=== PATIENT | female | born 1990 | race Caucasian/White ===

== ENCOUNTER 2017-06-04 07:00 | Inpatient (IN) | payer OTHER, SELFPAY ==
[2017-06-04] MEDS: Lactated Ringers 1,000 ML 50 ML IV ×3 (08:05→17:51)
[2017-06-04 08:24] LABS: Hematocrit 36.9 % (37-47); Hemoglobin 12.6 g/dl (12.0-15.0); Mean Corp Hgb Conc 34.1 g/gl (32-36); Mean Corpuscular Hgb 30.3 pg (27.0-32.0); Mean Corpuscular Volume 88.7 fL (81-99); Mean Platelet Vol. 10.9 fl (6.2-12.0); Platelet Count 215 K/mm3 (150-450); RBC Distribution Width CV 14.3 % (11.6-14.6); RBC Distribution Width SD 45.9 fl (35.1-43.9); Red Blood Count 4.16 M/mm3 (4.2-5.4); White Blood Count 10.9 K/mm3 (4.4-11.0)
[2017-06-04 08:26] LABS: Scan Indicated on CBC? Y/N NO
[2017-06-04 08:36] VITALS: BMI 39.2
[2017-06-04] MEDS: Clindamycin 900 MG/50 ML BAG 75 MG IV ×2 (08:57→16:05)
[2017-06-04] MEDS: Oxytocin 30 units/NS 500 ml 30 UNITS/500 ML IV.SOLN IV (08:58)
--- NOTE | 2017-06-04 08:59 | PCM.HP.OB ---
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 Allergies amoxicillin Allergy (Verified 06/04/17 07:29) Hives Penicillins Allergy (Verified 06/04/17 07:29) Hives Current Medications Acetaminophen (Tylenol) 325 - 650 mg PO Q4H PRN PRN PRN Reason: PAIN OR FEVER >100.4F Al Hydroxide/Mg Hydroxide (Mylanta Ii) 15 - 30 ml PO Q4H PRN PRN PRN Reason: INDIGESTION Citric Acid/Sodium Citrate (Bicitra) 30 ml PO UD PRN Lactated Ringer's () 1,000 mls @ 50 mls/hr IV .Q20H KARI Oxytocin/Sodium Chloride () 30 units in 500 mls @ 1 mls/hr IV .Q500H [facility] Last Admin: 06/04/17 08:58 Dose: 1 mls/hr Clindamycin Phosphate (Cleocin) 900 mg in 50 mls @ 75 mls/hr IV Q8H [facility] Last Admin: 06/04/17 08:57 Dose: 75 mls/hr Nalbuphine HCl (Nubain) 5 - 10 mg IV Q3H PRN PRN PRN Reason: PAIN (4-10/10) Ondansetron HCl (Zofran) 4 mg IV Q8H PRN PRN PRN Reason: NAUSEA Promethazine HCl (Phenergan) 6.25 - 12.5 mg IV Q4H PRN PRN; Protocol PRN Reason: IF NAUSEA PERSISTS Sodium Chloride () 5 - 15 ml IV UD [facility] Smoking Status: Never smoker Alcohol: None Drug Use: none Number of Fetus(es): 1 Physical Exam General: Alert, Oriented x3 Abdomen: Soft, Non Tender, Non-Distended, Gravid Presentation: Cephalic Cervix Dilation (cm): 2 Station: -3 Effacement (%): 60 - AROM clear fluid Assessment/Plan 27yo female for postdates induction Admit to L&D Pain - epidural when desired GBS positive EFW less than 4500g, adequate pelvis Routine care FWB - fhts 150 with mod variability, accels, mild variables; reassuring
--- NOTE | 2017-06-04 09:03 | HP.PCM_ITS ---
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 Allergies amoxicillin Allergy (Verified 06/04/17 07:29) Hives Penicillins Allergy (Verified 06/04/17 07:29) Hives Current Medications Acetaminophen (Tylenol) 325 - 650 mg PO Q4H PRN PRN PRN Reason: PAIN OR FEVER >100.4F Al Hydroxide/Mg Hydroxide (Mylanta Ii) 15 - 30 ml PO Q4H PRN PRN PRN Reason: INDIGESTION Citric Acid/Sodium Citrate (Bicitra) 30 ml PO UD PRN Lactated Ringer's () 1,000 mls @ 50 mls/hr IV .Q20H [facility] Oxytocin/Sodium Chloride () 30 units in 500 mls @ 1 mls/hr IV .Q500H [facility] Last Admin: 06/04/17 08:58 Dose: 1 mls/hr Clindamycin Phosphate (Cleocin) 900 mg in 50 mls @ 75 mls/hr IV Q8H [facility] Last Admin: 06/04/17 08:57 Dose: 75 mls/hr Nalbuphine HCl (Nubain) 5 - 10 mg IV Q3H PRN PRN PRN Reason: PAIN (4-10/10) Ondansetron HCl (Zofran) 4 mg IV Q8H PRN PRN PRN Reason: NAUSEA Promethazine HCl (Phenergan) 6.25 - 12.5 mg IV Q4H PRN PRN; Protocol PRN Reason: IF NAUSEA PERSISTS Sodium Chloride () 5 - 15 ml IV UD [facility] Smoking Status: Never smoker Alcohol: None Drug Use: none Number of Fetus(es): 1 Physical Exam General: Alert, Oriented x3 Abdomen: Soft, Non Tender, Non-Distended, Gravid Presentation: Cephalic Cervix Dilation (cm): 2 Station: -3 Effacement (%): 60 - AROM clear fluid Assessment/Plan 27yo female for postdates induction Admit to L&D Pain - epidural when desired GBS positive EFW less than 4500g, adequate pelvis Routine care FWB - fhts 150 with mod variability, accels, mild variables; reassuring
[2017-06-04] MEDS: fentaNYL-bupivacaine (epidural) 100 ML BAG EPIDURAL (15:58)
[2017-06-04] MEDS: Oxytocin 30 units/NS 500 ml 30 UNITS/500 ML IV.SOLN 334 UNITS IV (20:50)
--- NOTE | 2017-06-04 21:07 | PCM.OB.VAG ---
Vaginal Delivery Maternal Presentation: Medically Indicated Induction Method of Induction: Pitocin, Amniotomy Amniotic Membrane Rupture Type: Artificial Amniotic Fluid Description: Clear Final PATTI: 05/28/17 Gestational age: 41 Weeks and 0 Days Date of Procedure: 06/04/17 Pre-Operative Diagnosis: Post-dates Post-Operative Diagnosis: Same Surgery/ Procedure Performed: Spontaneous Vaginal Delivery Type of Anesthesia: Epidural Description of Procedure: Called to room when patient c/c/+2. Patient was prepped & draped. She pushed well but fhts were noted to intermittently be in the 50-70's. Thus decision made to use the vacuum. position confirmed and vacuum placed. Vacuum position confirmed on head. With the next ctx and 1 pull the head crowned. Vacuum released as head delivered. Tight nuchal cord noted and was clamped & cut. With maternal push the shoulders & body easily delivered. Infant placed on maternal abdomen. Placenta delivered with gentle traction. Good uterine tone obtained. Presentation: LUIS Placental Delivery Description: Expressed Placenta Disposition: [facility] Cord Vessel Description: 3 Vessels Cord Entanglement: Around neck x 1, tight Estimated Blood Loss: 350ml Infant A gender: Female (1 minute): 9 (5 minute): 9 Episiotomy Description: None Laceration: 1st degree - vaginal - repaired with 3-0 vicryl Medications given after delivery: IV Pitocin Complications: None
[2017-06-04] MEDS: Oxytocin 30 units/NS 500 ml 30 UNITS/500 ML IV.SOLN 167 UNITS IV (21:30)
[2017-06-04 22:57] VITALS: BP 151/71; PULSE 86; RESP 17; TEMP 37.3
[2017-06-05 02:00] VITALS: PULSE 97; RESP 18; TEMP 37.2
[2017-06-05 07:49] VITALS: BP 134/68; PULSE 85; RESP 18; TEMP 36.4; O2SAT 96
[2017-06-05] MEDS: Ibuprofen 600 MG Tablet PO ×2 (07:52→15:52)
--- NOTE | 2017-06-05 08:49 | PCM.PN.OB ---
Subjective: pain mild, average lochia - Physical Exam General: Alert, Cooperative, No apparent distress Vital Signs Temp Pulse Resp BP Pulse Ox 97.5 F L 85 18 134/68 H 96 06/05/17 07:49 06/05/17 07:49 06/05/17 07:49 06/05/17 07:49 06/05/17 07:49 Oxygen Delivery Method Room Air Weight: 117.208 kg Body Mass Index (BMI) 39.2 Intake and Output for Last 24 Hours 06/03/17 06/04/17 06/05/17 23:59 23:59 23:59 Intake Total 3043 / 3043 Output Total 2400 / 2400 450 / 450 Balance 643 / 643 -450 / -450 Laboratory Tests Past 24 Hrs 06/04/17 08:05 Blood Type O NEGATIVE Antibody Screen NEGATIVE Medical Necessity - Tobacco Use Smoking Status: Never smoker Assessment/Plan PPD#1 makenna [place] work on [employer] likely home tomorrow
--- NOTE | 2017-06-05 08:52 | DCINST_ITS ---
Discharge Diet: No Restrictions Discharge Activity: Return to Normal Activity, May not drive while taking narcotic pain medications., May Shower May resume sexual activity in: 4-6 weeks Additional Activity Instructions:: Nothing in the vagina for 4-6 weeks. You may return to work/school in 6 weeks. Call your doctor if your incision/area has: Continuous Slow Oozing, Sudden Increased Bleeding, Increased Pain/ Swelling, Increased Redness, Foul Smelling Discharge Additional Instructions: If you experience any of the following, contact your healthcare provider. * Bleeding that soaks a pad every hour for 2 hours * Fever 100.4 or higher * Unrelieved incision or abdominal pain * Swelling, redness, discharge or bleeding from your incision or episiotomy site * Your incision begins to separate * Problems urinating (including inability to urinate or burning while urinating) . * Visual changes * Severe headache * Flu-like symptoms * Pain or redness in one of both of your breasts * Pain, warmth, tenderness or swelling in your legs, especially the calf area * Frequent nausea and vomiting * Symptoms of depression or anxiety If you experience any of the following, call 911 or go to the nearest Emergency Room. * Chest pain * Problems breathing * Seizure activity * Partial or complete paralysis of a body part, slurred speech, weakness or drooping of the face, or a sudden inability to walk or hold your balance Allergies/Adverse Reactions: Allergies amoxicillin Allergy (Verified 06/04/17 07:29) Hives Penicillins Allergy (Verified 06/04/17 07:29) Hives Medications to take at Discharge Ciprofloxacin 0.3% [Ciloxan] 1 - 2 drop EACH EYE Q4H PRN PRN 06/04/17 Vit No.130/Iron/FA [ Tablet] 1 tab PO DAILY 06/04/17 Ibuprofen [Motrin] 800 mg PO TID PRN PRN #60 tab 06/05/17 The following prescriptions were given: Ibuprofen [Motrin] 800 mg PO TID PRN PRN #60 tab PRN Reason: Pain Please Follow Up With: Armand Jiménez - [phone] When: Call to make an appointment with your doctor in 6 weeks. If you had elevated Blood Pressure or 4th degree laceration you will need to be seen in 2 weeks. Primary Care Physician: Govind Mancuso MD [Primary Care Provider] -
[2017-06-05 11:26] VITALS: BP 135/80; PULSE 83; RESP 18; TEMP 36.4; O2SAT 95
[2017-06-05 15:38] VITALS: BP 133/57; PULSE 87; RESP 18; TEMP 36.7; O2SAT 97
[2017-06-05 19:50] VITALS: BP 135/94; PULSE 76; RESP 20; TEMP 37.1
[2017-06-05] MEDS: Acetaminophen 500 MG Tablet 1000 MG PO (19:57)
[2017-06-06 02:07] VITALS: BP 134/59; PULSE 84; RESP 20; TEMP 36.5
[2017-06-06 08:00] VITALS: BP 130/67; PULSE 82; RESP 18; TEMP 36.8; O2SAT 97
--- NOTE | 2017-06-06 09:18 | PCM.PN.OB ---
Subjective: Pain well controlled. Average lochia. Patient denies any headache, visual changes, or epigastric pain. - Physical Exam General: Alert, Cooperative, No apparent distress Vital Signs Temp Pulse Resp BP Pulse Ox 98.2 F 82 18 130/67 H 97 06/06/17 08:00 06/06/17 08:00 06/06/17 08:00 06/06/17 08:00 06/06/17 08:00 Oxygen Delivery Method Room Air Weight: 117.208 kg Body Mass Index (BMI) 39.2 Intake and Output for Last 24 Hours 06/04/17 06/05/17 06/06/17 23:59 23:59 23:59 Intake Total 3043 / 3043 Output Total 2400 / 2400 450 / 450 Balance 643 / 643 -450 / -450 Medical Necessity - Tobacco Use Smoking Status: Never smoker Assessment/Plan day #2 status post spontaneous vaginal delivery. Blood pressures have been mildly elevated at the end of her and currently. There is no evidence of preeclampsia. Discussed with the patient to call her return if signs or symptoms of preeclampsia. She is to follow-up in our office in 4-7 days for blood pressure check. She will be discharged home with routine instructions and follow-up.
[2017-06-06] MEDS: Senna/Docusate Sodium 1 Tablet PO (12:31)
[2017-06-06 13:57] VITALS: BP 140/86; PULSE 80; RESP 18; TEMP 37; O2SAT 97
[2017-06-06 15:45] VITALS: BP 143/85
[2017-06-06] MEDS: Ibuprofen 600 MG Tablet PO (16:18)
[2017-06-06 21:00] VITALS: BP 148/64; PULSE 84; RESP 18; TEMP 36.3
[2017-06-07 02:00] VITALS: BP 129/68; PULSE 74; RESP 18; TEMP 37.1; O2SAT 99
[2017-06-07 07:48] VITALS: BP 125/63; PULSE 77; RESP 16; TEMP 36.7
--- NOTE | 2017-06-07 08:16 | PCM.PN.OB ---
Subjective: Patient denies FIELDS or visual changes. No epigastric pain. Average lochia - Physical Exam General: Alert, Cooperative, No apparent distress Abdomen: Tender Extremities: Edema - 2+, 1 beat of clonus, 2+ DTRs Vital Signs Temp Pulse Resp BP Pulse Ox 98.0 F 77 16 125/63 H 99 06/07/17 07:48 06/07/17 07:48 06/07/17 07:48 06/07/17 07:48 06/07/17 02:00 Oxygen Delivery Method Room Air Weight: 117.208 kg Body Mass Index (BMI) 39.2 Intake and Output for Last 24 Hours 06/05/17 06/06/17 06/07/17 23:59 23:59 23:59 Output Total 450 / 450 Balance -450 / -450 Medical Necessity - Tobacco Use Smoking Status: Never smoker Assessment/Plan PPD#3 mildly elevated BP w/o evidence of preeclampsia d/c to hotel f/u for BP check next week pumping/working on
== END 2017-06-07 10:30 | disposition home or self-care (01) | DRG 774 ==
PROVIDERS: Admitting Provider Obstetrics & Gynecology; Family Provider Family Medicine; PCP Family Medicine; Visit Provider Obstetrics & Gynecology
DX: O76 Abnormality in fetal heart rate and rhythm complicating labor and delivery (principal); O98.82 Other maternal infectious and parasitic diseases complicating childbirth; R03.0 Elevated blood-pressure reading, without diagnosis of hypertension; O48.0 Post-term pregnancy; O69.81X0 Labor and delivery complicated by cord around neck, without compression, not applicable or unspecified; B95.1 Streptococcus, group B, as the cause of diseases classified elsewhere; Z37.0 Single live birth; Z3A.41 41 weeks gestation of pregnancy; Z22.330 Carrier of Group B streptococcus
CPT/HCPCS: 59025; 59050; 85027; 86850; 86900; 99218; J7030; J7120; G0378